=== PATIENT | male | born 1990 | race Caucasian/White ===

== ENCOUNTER 2021-09-10 19:15 | Emergency (ER) | payer OTHER ==
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
[2021-09-10] MEDS: ACETAMINOPHEN W/CODEINE 300-30 MG TAB PO ONE (20:51)
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
[2021-09-10 22:40] VITALS: BP 145/70
== END 2021-09-10 21:48 | disposition home or self-care (01) ==
LOC: ED 19:15
DX: S00.03XA Contusion of scalp, initial encounter (principal); V89.2XXA Person injured in unspecified motor-vehicle accident, traffic, initial encounter; Y93.89 Activity, other specified; Y92.89 Other specified places as the place of occurrence of the external cause; Y99.8 Other external cause status
CPT/HCPCS: 99283